=== PATIENT | female | born 1935 | race Caucasian/White ===

== ENCOUNTER 2017-11-16 15:01 | Emergency (ER) | payer MEDICARE, OTHER ==
--- NOTE | 2017-11-16 15:16 | EDM.PDOC ---
ED HPI GENERAL MEDICAL PROBLEM - General Chief Complaint: General Stated Complaint: FELL Time Seen by Provider: 11/16/17 15:01 Source of Information: Reports: Patient, EMS History Limitations: Reports: Other (H/O dementia) - History of Present Illness INITIAL COMMENTS - FREE TEXT/NARRATIVE: 82 y.o.w.f with h/o dementia came to the ed by EMS because she was found on the floor next to her bed and could not get up. However, Pt denied falling. She does not know why she was brought to the ED. No Pain, No N/.V/D no dizziness. BP 1164 RR 24 Pulse 76 Temp 36.7 Pulse ox 100% Onset Date: 11/16/17 Onset Time: 12:00 Duration: Hour(s): Location: Reports: Other (pt denied any complaisn and does not know why she is here. ) - Related Data Allergies Allergy/AdvReac Type Severity Reaction Status Date / Time codeine Allergy Other Verified 11/16/17 15:03 propoxyphene Allergy Other Verified 11/16/17 15:03 Home Meds: Home Meds amLODIPine [Norvasc] 10 mg PO DAILY #30 tablet 12/14/14 [Rx] Donepezil HCl [Aricept] 10 mg PO DAILY 11/16/17 [History] Furosemide [Lasix] 20 mg PO DAILY 11/16/17 [History] Hydrochlorothiazide/Lisinopril [Lisinopril-HCTZ 20-25 MG] 20 mg PO DAILY [History] Memantine HCl 10 mg PO BID 11/16/17 [History] Multivitamin [Multi-Day Vitamins] 1 tab PO DAILY 11/16/17 [History] Warfarin Sodium [Coumadin] 7.5 mg PO MOWEFR 11/16/17 [History] Warfarin [Coumadin] 5 mg PO SUTUTHSA 11/16/17 [History] Past Medical History Other Respiratory History: COPD DIAGNOSIS ON OLD CHEST X-RAY 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 Neuro History: MENINGITIS, FORGETFUL ED ROS GENERAL - Review of Systems Review Of Systems: Unable To Obtain Constitutional: Reports: No Symptoms HEENT: Reports: No Symptoms Respiratory: Reports: No Symptoms Cardiovascular: Reports: No Symptoms Endocrine: Reports: No Symptoms GI/Abdominal: Reports: No Symptoms : Reports: No Symptoms Musculoskeletal: Reports: No Symptoms Skin: Reports: No Symptoms Neurological: Reports: No Symptoms Psychiatric: Reports: No Symptoms Hematologic/Lymphatic: Reports: No Symptoms Immunologic: Reports: No Symptoms ED EXAM, GENERAL - Physical Exam Exam: See Below Exam Limited By: No Limitations General Appearance: Alert, WD/WN, No Apparent Distress Eye Exam: Bilateral Eye: Normal Inspection Ears: Normal External Exam Ear Exam: Bilateral Ear: Auricle Normal Nose: Normal Inspection Throat/Mouth: Normal Lips, Normal Voice, No Airway Compromise, Other (dry mucosal membrane) Head: Atraumatic, Normocephalic Neck: Normal Inspection, Supple, Non-Tender Respiratory/Chest: No Respiratory Distress, Lungs Clear, Normal Breath Sounds, No Accessory Muscle Use, Chest Non-Tender Cardiovascular: Normal Peripheral Pulses, Regular Rate, Rhythm, No Edema Peripheral Pulses: 1+: Brachial (L) GI/Abdominal: Normal Bowel Sounds, Soft, Non-Tender, No Abnormal Bruit (Female) Exam: Deferred Rectal (Female) Exam: Deferred Back Exam: Normal Inspection, Full Range of Motion Extremities: Normal Inspection, Normal Range of Motion, Non-Tender, No Pedal Edema Neurological: Alert, Oriented, CN II-XII Intact, Normal Cognition, Normal Gait Psychiatric: Normal Affect, Normal Mood Skin Exam: Warm, Dry, Intact, Normal Color, No Rash Lymphatic: No Adenopathy Course - Vital Signs Text/Narrative:: 82 y.o.w.f with h/o dementia came to the ed by EMS because she was found on the floor next to her bed and could not get up. However, Pt denied falling. She does not know why she was brought to the ED. No Pain, No N/.V/D no dizziness. BP 11/64 RR 24 Pulse 76 Temp 36.7 Pulse ox 100% PE: WNWD W F with dry mucosal membrane, ambulates fine Labs: CBC neg, INR 1.86 )=(on coumadine) NA/K nl BUN 10 Cr 1.6 GFR 36 Impression: Fall (?)Dehydration Tx: Water PO Reexam: doing well, ambulates fine Plan: D/C with instructions Last Recorded V/S: Last Vital Signs Temp 36.6 C 11/16/17 15:45 Pulse 60 11/16/17 15:20 Resp 20 11/16/17 16:45 BP 113/60 11/16/17 16:45 Pulse Ox 98 07/07/18 16:45 - Orders/Labs/Meds Orders: Active Orders 24 hr Category Date Time Status UA W/MICROSCOPIC [URIN] Stat Lab 11/16/17 15:38 Ordered Labs: Laboratory Tests 11/16/17 11/16/17 11/16/17 Range/Units 14:45 14:45 14:45 WBC 7.3 (4.5-12.0) X10-3/uL RBC 4.66 (3.23-5.20) x10(6)uL Hgb 14.2 (11.5-15.5) g/dL Hct 41.9 (30.0-51.3) % MCV 90.0 (80-96) fL MCH 30.4 (27.7-33.6) pg MCHC 33.8 (32.2-35.4) g/dL RDW 12.5 (11.5-15.5) % Plt Count 257 (125-369) X10(3)uL MPV 8.6 (7.4-10.4) fL Neut % (Auto) 61.1 (46-82) % Lymph % (Auto) 28.2 (13-37) % Shannon % (Auto) 7.7 (4-12) % Eos % (Auto) 2 (1.0-5.0) % Baso % (Auto) 1 (0-2) % Neut # (Auto) 4.4 (1.6-8.3) # Lymph # (Auto) 2.0 (0.6-5.0) # Shannon # (Auto) 0.6 (0.0-1.3) # Eos # (Auto) 0.2 (0.0-0.8) # Baso # (Auto) 0.1 (0.0-0.2) # PT 17.9 H (8.7-11.1) INR 1.86 H (0.89-1.13) Sodium 136 (135-145) mmol/L Potassium 4.2 (3.5-5.3) mmol/L Chloride 101 (100-110) mmol/L Carbon Dioxide 27 (21-32) mmol/L BUN 16 (7-18) mg/dL Creatinine 1.4 H (0.55-1.02) mg/dL Est Cr Clr Drug Dosing 25.19 mL/min Estimated GFR (MDRD) 36 L (>60) BUN/Creatinine Ratio 11.4 (9-20) Glucose 83 (80-116) mg/dL Calcium 8.9 (8.6-10.2) mg/dL Urine Color (YELLOW) Urine Appearance (CLEAR) Urine pH (5.0-6.5) Ur Specific [place] (1.010-1.025) Urine Protein (NEGATIVE) mg/dL Urine Glucose (UA) (NEGATIVE) mg/dL Urine Ketones (NEGATIVE) mg/dL Urine Occult Blood (NEGATIVE) Urine Nitrite (NEGATIVE) Urine Bilirubin (NEGATIVE) Urine Urobilinogen (NEGATIVE) mg/dL Ur Leukocyte Esterase (NEGATIVE) Urine RBC (0) Urine WBC (0) Ur Squamous Epith Cells (NS,R,O) Urine Bacteria (NS) Urine Mucus (NS) 11/16/17 Range/Units 15:38 WBC (4.5-12.0) X10-3/uL RBC (3.23-5.20) x10(6)uL Hgb (11.5-15.5) g/dL Hct (30.0-51.3) % MCV (80-96) fL MCH (27.7-33.6) pg MCHC (32.2-35.4) g/dL RDW (11.5-15.5) % Plt Count (125-369) X10(3)uL MPV (7.4-10.4) fL Neut % (Auto) (46-82) % Lymph % (Auto) (13-37) % [place] % (Auto) (4-12) % Eos % (Auto) (1.0-5.0) % Baso % (Auto) (0-2) % Neut # (Auto) (1.6-8.3) # Lymph # (Auto) (0.6-5.0) # Shannon # (Auto) (0.0-1.3) # Eos # (Auto) (0.0-0.8) # Baso # (Auto) (0.0-0.2) # PT (8.7-11.1) INR (0.89-1.13) Sodium (135-145) mmol/L Potassium (3.5-5.3) mmol/L Chloride (100-110) mmol/L Carbon Dioxide (21-32) mmol/L BUN (7-18) mg/dL Creatinine (0.55-1.02) mg/dL Est Cr Clr Drug Dosing mL/min Estimated GFR (MDRD) (>60) BUN/Creatinine Ratio (9-20) Glucose (80-116) mg/dL Calcium (8.6-10.2) mg/dL Urine Color Yellow (YELLOW) Urine Appearance Clear (CLEAR) Urine pH 8.0 H (5.0-6.5) Ur Specific [place] 1.010 (1.010-1.025) Urine Protein Negative (NEGATIVE) mg/dL Urine Glucose (UA) Normal (NEGATIVE) mg/dL Urine Ketones Negative (NEGATIVE) mg/dL Urine Occult Blood Negative (NEGATIVE) Urine Nitrite Negative (NEGATIVE) Urine Bilirubin Negative (NEGATIVE) Urine Urobilinogen Normal (NEGATIVE) mg/dL Ur Leukocyte Esterase Negative (NEGATIVE) Urine RBC 0-5 (0) Urine WBC 0-5 (0) Ur Squamous Epith Cells Few H (NS,R,O) Urine Bacteria Few H (NS) Urine Mucus Few H (NS) Departure - Departure Time of Disposition: 17:02 Disposition: Home, Self-Care 01 Condition: Good Clinical Impression: Dehydration - Discharge Information Instructions: Dehydration, Adult, [id number] Referrals: PCP,None [Primary Care Provider] - Forms: ED Department Discharge Additional Instructions: Please increase water intake, please f/u with your PMD, please come back if your symptoms get worse acutely - My Orders Last 24 Hours: My Active Orders 11/16/17 15:38 UA W/MICROSCOPIC [URIN] Stat - Assessment/Plan Last 24 Hours: My Active Orders 11/16/17 15:38 UA W/MICROSCOPIC [URIN] Stat
[2017-11-16 17:47] VITALS: BP 113/60
== END 2017-11-16 17:15 | disposition home or self-care (01) ==
LOC: FB.ED 15:01
DX: E86.0 Dehydration (principal); J44.9 Chronic obstructive pulmonary disease, unspecified; Z88.5 Allergy status to narcotic agent; Z88.8 Allergy status to other drugs, medicaments and biological substances; Z79.899 Other long term (current) drug therapy
CPT/HCPCS: 36415; 80048; 81001; 85025; 85610; 99283; 99285

== ENCOUNTER 2018-10-05 14:06 | Emergency (ER) | payer MEDICARE, OTHER ==
[2018-10-05] MEDS ORDERED: Ciprofloxacin 500 MG Tab PO ONE ×2 (14:07→15:16)
--- NOTE | 2018-10-05 14:20 | EDM.PDOC ---
ED HPI GENERAL MEDICAL PROBLEM - General Stated Complaint: MIGRAINE, TREMERS Time Seen by Provider: 10/05/18 14:06 Source of Information: Reports: Patient, EMS, Family History Limitations: Reports: Other (dementia) - History of Present Illness INITIAL COMMENTS - FREE TEXT/NARRATIVE: 83 y.o.w.f with a H/O Dementia, H/O DVT's PE's came to the ED by EMS due to H/A and not feeling well. Pt is a poor historian due to her underlying medical issues. As the patient arrived in the ed, she said her H/A has entirely subsided. She feels well now and want to go home. No family is present. No N/V/D , Pt was ambulating with help to the Bathroom, which is the baseline for her. 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 No other acute med issues. 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) Worsens with: Reports: Other Associated Symptoms: Reports: Confusion (H/O Dementia) Treatments WAX PATTERN REPAIRER: Reports: NSAIDS - Related Data Allergies Allergy/AdvReac Type Severity Reaction Status Date / Time codeine Allergy Other Verified 10/05/18 14:14 propoxyphene Allergy Other Verified 10/05/18 14:14 Home Meds: Home Meds amLODIPine [Norvasc] 10 mg PO DAILY #30 tablet 12/14/14 [Rx] Donepezil HCl [Aricept] 10 mg PO DAILY 11/16/17 [History] Furosemide [Lasix] 20 mg PO DAILY 11/16/17 [History] Memantine HCl 10 mg PO BID 11/16/17 [History] Multivitamin [Multi-Day Vitamins] 1 tab PO DAILY 11/16/17 [History] Warfarin Sodium [Coumadin] 7.5 mg PO MOWEFR 11/16/17 [History] Warfarin [Coumadin] 5 mg PO SUTUTHSA 11/16/17 [History] Lisinopril 20 mg PO DAILY 10/05/18 [History] Past Medical History Cardiovascular History: Reports: Hypertension Other Respiratory History: COPD DIAGNOSIS ON OLD CHEST X-RAY 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 Neuro History: MENINGITIS, FORGETFUL Psychiatric History: Reports: Dementia Social & Family History - Caffeine Use Caffeine Use: Reports: Coffee ED ROS GENERAL - Review of Systems Review Of Systems: Unable To Obtain (dementia) ED EXAM, GENERAL - Physical Exam Exam: See Below Exam Limited By: Other (dementia) General Appearance: Alert, WD/WN, Mild Distress Eye Exam: Bilateral Eye: Normal Inspection Ears: Normal External Exam Ear Exam: Bilateral Ear: Auricle Normal Nose: Normal Inspection, Normal Mucosa, No Blood Throat/Mouth: Normal Lips, Normal Voice, No Airway Compromise, Other (poor dentition, dry mucosal membrane) Head: Atraumatic, Normocephalic Neck: Normal Inspection, Supple, Non-Tender, Full Range of Motion Respiratory/Chest: No Respiratory Distress, Lungs Clear, Normal Breath Sounds Cardiovascular: Normal Peripheral Pulses, Regular Rate, Rhythm Peripheral Pulses: 1+: Femoral (L) GI/Abdominal: Normal Bowel Sounds, Soft, Non-Tender, No Organomegaly, No Mass, Pelvis Stable (Female) Exam: Deferred Rectal (Female) Exam: Deferred Back Exam: Normal Inspection, Full Range of Motion Extremities: Normal Inspection, Normal Range of Motion, Non-Tender, Pedal Edema (chronic left leg edema) Neurological: Alert, Oriented, CN II-XII Intact, Normal Gait (with help, baseline) Psychiatric: Normal Affect, Normal Mood Skin Exam: Warm, Dry, Intact, Pallor Lymphatic: No Adenopathy EKG INTERPRETATION EKG Date: 10/05/18 Time: 14:20 Rhythm: NSR Rate (Beats/Min): 67 [employer]: Normal P-Wave: Present QRS: Normal ST-T: Normal QT: Normal Comparison: No Change (from 12/08/2014) Course - Vital Signs Text/Narrative:: 83 y.o.w.f with a H/O Dementia, H/O DVT's PE's came to the ED by EMS due to H/A and not feeling well. Pt is a poor historian due to her underlying medical issues. As the patient arrived in the ed, she said her H/A has entirely subsided. She feels well now and want to go home. No family is present. No N/V/D , Pt was ambulating with help to the Bathroom, which is the baseline for her. 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 No other acute med issues. BP 135/91 RR 16 Pulse ox 96% on RA Pulse 64 Temp 36.4 PE: WNWD WF in NAD Imaging: Not indicated Labs: CBC nl BMP NL except BUN 20 Cr 1.7 GFR 29 UA pos for USG low and Leucocytesterase pos. Impression: UTI, Dehydration Tx: Cipro, po water Reexam: Improved Plan: D/C with instructions Last Recorded V/S: Last Vital Signs Temp 36.4 C 10/05/18 14:06 Pulse 66 10/05/18 14:06 Resp 18 10/05/18 14:06 BP 135/91 H 10/05/18 14:06 Pulse Ox 96 10/05/18 14:06 - Orders/Labs/Meds Orders: Active Orders 24 hr Category Date Time Status EKG Documentation Completion [RC] ASDIRECTED Care 10/05/18 14:24 Active CULTURE URINE [RM] Stat Lab 10/05/18 14:55 Received EKG 12 Lead [EK] Routine Ther 10/05/18 14:24 Ordered Labs: Laboratory Tests 10/05/18 10/05/18 10/05/18 Range/Units 14:25 14:25 14:25 WBC 8.4 (4.5-12.0) X10-3/uL RBC 4.94 (3.23-5.20) x10(6)uL Hgb 15.0 (11.5-15.5) g/dL Hct 44.2 (30.0-51.3) % MCV 89.5 (80-96) fL MCH 30.5 (27.7-33.6) pg MCHC 34.0 (32.2-35.4) g/dL RDW 12.4 (11.5-15.5) % Plt Count 258 (125-369) X10(3)uL MPV 8.4 (7.4-10.4) fL Neut % (Auto) 64.7 (46-82) % Lymph % (Auto) 27.2 (13-37) % Fisher % (Auto) 6.0 (4-12) % Eos % (Auto) 1 (1.0-5.0) % Baso % (Auto) 1 (0-2) % Neut # (Auto) 5.4 (1.6-8.3) # Lymph # (Auto) 2.3 (0.6-5.0) # Fisher # (Auto) 0.5 (0.0-1.3) # Eos # (Auto) 0.1 (0.0-0.8) # Baso # (Auto) 0.1 (0.0-0.2) # PT (8.7-11.1) INR (0.89-1.13) Sodium 136 (135-145) mmol/L Potassium 4.5 (3.5-5.3) mmol/L Chloride 100 (100-110) mmol/L Carbon Dioxide 29 (21-32) mmol/L BUN 20 H (7-18) mg/dL Creatinine 1.7 H (0.55-1.02) mg/dL Est Cr Clr Drug Dosing 20.38 mL/min Estimated GFR (MDRD) 29 L (>60) BUN/Creatinine Ratio 11.8 (9-20) Glucose 81 (80-116) mg/dL Lactic Acid 1.5 (0.4-2.2) mmol/L Calcium 9.3 (8.6-10.2) mg/dL Total Bilirubin (0.1-1.3) mg/dL Direct Bilirubin (0.10-0.20) mg/dL AST (5-25) IU/L ALT (12-36) U/L Alkaline Phosphatase (56-112) IU/L Troponin I (<0.017-0.056) ng/mL Total Protein (6.0-8.0) g/dL Albumin (3.2-4.6) g/dL Amylase (25-115) U/L Urine Color (YELLOW) Urine Appearance (CLEAR) Urine pH (5.0-6.5) Ur Specific [place] (1.010-1.025) Urine Protein (NEGATIVE) mg/dL Urine Glucose (UA) (NORMAL) mg/dL Urine Ketones (NEGATIVE) mg/dL Urine Occult Blood (NEGATIVE) Urine Nitrite (NEGATIVE) Urine Bilirubin (NEGATIVE) Urine Urobilinogen (NEGATIVE) mg/dL Ur Leukocyte Esterase (NEGATIVE) Urine RBC (0-5) Urine WBC (0-5) Ur Squamous Epith Cells (NS,R,O) Urine Bacteria (NS) 10/05/18 10/05/18 10/05/18 Range/Units 14:25 14:25 14:35 WBC (4.5-12.0) X10-3/uL RBC (3.23-5.20) x10(6)uL Hgb (11.5-15.5) g/dL Hct (30.0-51.3) % MCV (80-96) fL MCH (27.7-33.6) pg MCHC (32.2-35.4) g/dL RDW (11.5-15.5) % Plt Count (125-369) X10(3)uL MPV (7.4-10.4) fL Neut % (Auto) (46-82) % Lymph % (Auto) (13-37) % Fisher % (Auto) (4-12) % Eos % (Auto) (1.0-5.0) % Baso % (Auto) (0-2) % Neut # (Auto) (1.6-8.3) # Lymph # (Auto) (0.6-5.0) # Fisher # (Auto) (0.0-1.3) # Eos # (Auto) (0.0-0.8) # Baso # (Auto) (0.0-0.2) # PT 28.0 H (8.7-11.1) INR 2.92 H (0.89-1.13) Sodium (135-145) mmol/L Potassium (3.5-5.3) mmol/L Chloride (100-110) mmol/L Carbon Dioxide (21-32) mmol/L BUN (7-18) mg/dL Creatinine (0.55-1.02) mg/dL Est Cr Clr Drug Dosing mL/min Estimated GFR (MDRD) (>60) BUN/Creatinine Ratio (9-20) Glucose (80-116) mg/dL Lactic Acid (0.4-2.2) mmol/L Calcium (8.6-10.2) mg/dL Total Bilirubin 0.4 (0.1-1.3) mg/dL Direct Bilirubin 0.10 (0.10-0.20) mg/dL AST 26 H (5-25) IU/L ALT 25 (12-36) U/L Alkaline Phosphatase 97 (56-112) IU/L Troponin I < 0.017 L (<0.017-0.056) ng/mL Total Protein 6.2 (6.0-8.0) g/dL Albumin 3.1 L (3.2-4.6) g/dL Amylase 103 (25-115) U/L Urine Color (YELLOW) Urine Appearance (CLEAR) Urine pH (5.0-6.5) Ur Specific [place] (1.010-1.025) Urine Protein (NEGATIVE) mg/dL Urine Glucose (UA) (NORMAL) mg/dL Urine Ketones (NEGATIVE) mg/dL Urine Occult Blood (NEGATIVE) Urine Nitrite (NEGATIVE) Urine Bilirubin (NEGATIVE) Urine Urobilinogen (NEGATIVE) mg/dL Ur Leukocyte Esterase (NEGATIVE) Urine RBC (0-5) Urine WBC (0-5) Ur Squamous Epith Cells (NS,R,O) Urine Bacteria (NS) 10/05/18 Range/Units 14:55 WBC (4.5-12.0) X10-3/uL RBC (3.23-5.20) x10(6)uL Hgb (11.5-15.5) g/dL Hct (30.0-51.3) % MCV (80-96) fL MCH (27.7-33.6) pg MCHC (32.2-35.4) g/dL RDW (11.5-15.5) % Plt Count (125-369) X10(3)uL MPV (7.4-10.4) fL Neut % (Auto) (46-82) % Lymph % (Auto) (13-37) % Fisher % (Auto) (4-12) % Eos % (Auto) (1.0-5.0) % Baso % (Auto) (0-2) % Neut # (Auto) (1.6-8.3) # Lymph # (Auto) (0.6-5.0) # Fisher # (Auto) (0.0-1.3) # Eos # (Auto) (0.0-0.8) # Baso # (Auto) (0.0-0.2) # PT (8.7-11.1) INR (0.89-1.13) Sodium (135-145) mmol/L Potassium (3.5-5.3) mmol/L Chloride (100-110) mmol/L Carbon Dioxide (21-32) mmol/L BUN (7-18) mg/dL Creatinine (0.55-1.02) mg/dL Est Cr Clr Drug Dosing mL/min Estimated GFR (MDRD) (>60) BUN/Creatinine Ratio (9-20) Glucose (80-116) mg/dL Lactic Acid (0.4-2.2) mmol/L Calcium (8.6-10.2) mg/dL Total Bilirubin (0.1-1.3) mg/dL Direct Bilirubin (0.10-0.20) mg/dL AST (5-25) IU/L ALT (12-36) U/L Alkaline Phosphatase (56-112) IU/L Troponin I (<0.017-0.056) ng/mL Total Protein (6.0-8.0) g/dL Albumin (3.2-4.6) g/dL Amylase (25-115) U/L Urine Color Yellow (YELLOW) Urine Appearance Clear (CLEAR) Urine pH 7.0 H (5.0-6.5) Ur Specific [place] 1.005 L (1.010-1.025) Urine Protein Negative (NEGATIVE) mg/dL Urine Glucose (UA) Normal (NORMAL) mg/dL Urine Ketones Negative (NEGATIVE) mg/dL Urine Occult Blood Negative (NEGATIVE) Urine Nitrite Negative (NEGATIVE) Urine Bilirubin Negative (NEGATIVE) Urine Urobilinogen Normal (NEGATIVE) mg/dL Ur Leukocyte Esterase Moderate H (NEGATIVE) Urine RBC 0-5 (0-5) Urine WBC 0-5 (0-5) Ur Squamous Epith Cells Few H (NS,R,O) Urine Bacteria Few H (NS) Meds: Medications Discontinued Medications Generic Name Dose Route Start Last Admin Trade Name Freq PRN Reason Stop Dose Admin Ciprofloxacin 500 mg 10/05/18 15:16 10/05/18 15:30 Ciprofloxacin Hcl PO 10/05/18 15:17 500 mg ONETIME ONE Administration Departure - Departure Time of Disposition: 15:17 Disposition: Home, Self-Care 01 Condition: Good Clinical Impression: Dehydration UTI (urinary tract infection) Qualifiers: Urinary tract infection type: acute cystitis Hematuria presence: without hematuria Qualified Code(s): N30.00 - Acute cystitis without hematuria - Discharge Information Instructions: Urinary Tract Infection, Adult, [id number], Ciprofloxacin tablets Referrals: PCP,None [Primary Care Provider] - Forms: ED Department Discharge Additional Instructions: Please increase water intake. Please repeat the INR test in 3-4 days, please follow up with regular MD at clinic as needed or if not improving, come back if your symptoms get worse acutely. Cipro 500mg 1 tablet twice a day, start tomorrow. First dose was given in ER. - My Orders Last 24 Hours: My Active Orders 10/05/18 14:24 EKG Documentation Completion [RC] ASDIRECTED EKG 12 Lead [EK] Routine 10/05/18 14:55 CULTURE URINE [RM] Stat - Assessment/Plan Last 24 Hours: My Active Orders 10/05/18 14:24 EKG Documentation Completion [RC] ASDIRECTED EKG 12 Lead [EK] Routine 10/05/18 14:55 CULTURE URINE [RM] Stat
[2018-10-05 18:49] VITALS: BP 120/79
== END 2018-10-05 17:00 | disposition home or self-care (01) ==
LOC: FB.ED 14:06
DX: N30.00 Acute cystitis without hematuria (principal); E86.0 Dehydration; I10 Essential (primary) hypertension; F03.90 Unspecified dementia, unspecified severity, without behavioral disturbance, psychotic disturbance, mood disturbance, and anxiety; Z79.01 Long term (current) use of anticoagulants; Z79.899 Other long term (current) drug therapy; Z88.5 Allergy status to narcotic agent; Z88.8 Allergy status to other drugs, medicaments and biological substances; Z86.718 Personal history of other venous thrombosis and embolism
CPT/HCPCS: 36415; 80048; 80076; 81001; 82150; 83605; 84484; 85025; 85610; 87086; 93005; 99284; A9270

== ENCOUNTER 2018-11-15 10:10 | Emergency (ER) | payer MEDICARE, OTHER ==
--- NOTE | 2018-11-15 10:43 | EDM.PDOC ---
ED HPI GENERAL MEDICAL PROBLEM - General Stated Complaint: WEAK Time Seen by Provider: 11/15/18 10:37 Source of Information: Reports: Patient, EMS, Custodial Records History Limitations: Reports: Altered Mental Status (Patient is disoriented and cannot provide me with really any history) - History of Present Illness INITIAL COMMENTS - FREE TEXT/NARRATIVE: 83-year-old female who presents to the emergency department via ambulance from her assisted living facility after she was found in her room lying on her bed with decreased responsiveness this morning. Apparently the patient did not come down for breakfast and staff went to check on the patient and found her on her bed fully clothed (she does wear a diaper but the diaper was not soiled) and not responding to verbal stimuli or other stimuli in a normal way. EMS found the patient in a similar condition. She was breathing and did respond with grunts. She was noted to have a blood sugar 61 and was awake enough to take oral glucose and she received about a half a tube of oral glucose with a rise in her blood sugar to the 80s and she seemed to be somewhat more responsive after this. She would respond verbally at that time but seemed disoriented to place, time and situation. She seemed the same to me when I initially evaluated the patient and was awake and alert and verbally responsive but was disoriented as above. She tells me that everything is fine and she is not sure why she was brought here and she does not know where here is. She tells me she feels fine and she has no pain anywhere. She is in no respiratory distress and her eyes follow the examiner and she seemed to respond appropriately to my questions. Apparently the patient was normal last night per the assisted living staff. She was eating and drinking normally and ambulating normally. There were no reports of complaints of chest pain or cough or fever or trauma by the personnel at the assisted [facility] per the EMS who brought her. She denies any pain right now. She would rate her pain as a 0/10. There are no other associated signs or symptoms. There are no other modifying factors. 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 Medication(s) (Oral glucose) - Related Data Allergies Allergy/AdvReac Type Severity Reaction Status Date / Time codeine Allergy Other Verified 11/15/18 10:34 propoxyphene Allergy Other Verified 11/15/18 10:34 Home Meds: Home Meds amLODIPine [Norvasc] 10 mg PO DAILY #30 tablet 12/14/14 [Rx] Donepezil HCl [Aricept] 10 mg PO DAILY 11/16/17 [History] Furosemide [Lasix] 20 mg PO DAILY 11/16/17 [History] Memantine HCl 10 mg PO BID 11/16/17 [History] Multivitamin [Multi-Day Vitamins] 1 tab PO DAILY 11/16/17 [History] Warfarin Sodium [Coumadin] 7.5 mg PO MO 11/16/17 [History] Warfarin [Coumadin] 5 mg PO SUTUWETHFRSA 11/16/17 [History] Lisinopril 20 mg PO DAILY 10/05/18 [History] Cephalexin [Keflex] 500 mg PO TID 7 Days #21 capsule 11/15/18 [Rx] Past Medical History Cardiovascular History: Reports: Hypertension Respiratory History: Reports: PE 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: Neurological History: Reports: Migraines Other Neuro History: MENINGITIS, FORGETFUL Psychiatric History: Reports: Dementia Hematologic History: Reports: Anticoagulation Therapy - Infectious Disease History Infectious Disease History: Reports: Chicken Pox, Measles, Meningitis, Mumps, Pertussis (Whooping Cough), Scarlet Fever - Past Surgical History Female Surgical History: Reports: Hysterectomy Musculoskeletal Surgical History: Reports: ORIF (Wrist and ankle) Social & Family History - Family History Family Medical History: Noncontributory - Tobacco Use Smoking Status *Q: Never Smoker - Caffeine Use Caffeine Use: Reports: Coffee - Alcohol Use Alcohol Use History: No Alcohol Use Comment: She told me that she has rarely drink alcohol. - Living Situation & Occupation Living situation: Reports: Assisted Living ED ROS GENERAL - Review of Systems Review Of Systems: Unable To Obtain (The patient is disoriented to place, time and situation. Therefore, the review of systems is unreliable and unobtainable) ED EXAM, GENERAL - Physical Exam Exam: See Below Exam Limited By: No Limitations General Appearance: Alert, WD/WN, No Apparent Distress Eye Exam: Bilateral Eye: EOMI, Normal Inspection, PERRL Ears: Normal External Exam Ear Exam: Bilateral Ear: Auricle Normal Nose: Normal Inspection, Normal Mucosa, No Blood Throat/Mouth: Normal Inspection, Normal Oropharynx, Normal Voice, No Airway Compromise Head: Atraumatic, Normocephalic Neck: Normal Inspection, Supple, Non-Tender, Full Range of Motion Respiratory/Chest: No Respiratory Distress, Lungs Clear, Normal Breath Sounds, No Accessory Muscle Use, Chest Non-Tender Cardiovascular: Normal Peripheral Pulses, Regular Rate, Rhythm, No JVD Peripheral Pulses: 2+: Radial (L), Radial (R), Dorsalis Pedis (L), Dorsalis Pedis (R) GI/Abdominal: Normal Bowel Sounds, Soft, Non-Tender, No Mass Back Exam: Normal Inspection Extremities: Normal Inspection, Normal Range of Motion, Non-Tender, No Pedal Edema, Normal Capillary Refill Neurological: Alert, CN II-XII Intact, No Motor/Sensory Deficits, Disoriented Skin Exam: Intact, Normal Color, No Rash, Diaphoretic (Her hands and arms are somewhat clammy as is her back) EKG INTERPRETATION EKG Date: 11/15/18 Time: 10:22 Rhythm: NSR Rate (Beats/Min): 59 [place]: Normal P-Wave: Present QRS: LBBB (The QRS are fairly wide) ST-T: Other (4 with progression.) QT: Prolonged Comparison: NA - No Prior EKG Course - Vital Signs Last Recorded V/S: Last Vital Signs Temp 36.8 C 11/15/18 12:04 Pulse 57 L 11/15/18 12:04 Resp 18 11/15/18 12:04 BP 147/58 H 11/15/18 12:04 Pulse Ox 99 11/15/18 12:04 - Orders/Labs/Meds Orders: Active Orders 24 hr Category Date Time Status EKG Documentation Completion [RC] ASDIRECTED Care 11/15/18 10:54 Active Chest 1V Frontal [CR] Stat Exams 11/15/18 10:52 Taken Head wo Cont [CT] Stat Exams 11/15/18 11:17 Taken CULTURE URINE [RM] Stat Lab 11/15/18 11:30 Ordered Sodium Chloride 0.9% [Saline Flush] Med 11/15/18 10:52 Active 10 ml FLUSH ASDIRECTED PRN Peripheral IV Insertion Adult [OM.PC] Routine Oth 11/15/18 10:52 Ordered EKG 12 Lead [EK] Routine Ther 11/15/18 10:52 Ordered Medication Orders Sodium Chloride (Saline Flush) 10 ml FLUSH ASDIRECTED PRN PRN Reason: Keep Vein Open Labs: Laboratory Tests 11/15/18 11/15/18 11/15/18 Range/Units 10:25 10:25 10:25 WBC 6.8 (4.5-12.0) X10-3/uL RBC 5.06 (3.23-5.20) x10(6)uL Hgb 15.1 (11.5-15.5) g/dL Hct 45.2 (30.0-51.3) % MCV 89.4 (80-96) fL MCH 29.9 (27.7-33.6) pg MCHC 33.4 (32.2-35.4) g/dL RDW 12.4 (11.5-15.5) % Plt Count 210 (125-369) X10(3)uL MPV 8.7 (7.4-10.4) fL Neut % (Auto) 57.5 (46-82) % Lymph % (Auto) 32.8 (13-37) % [place] % (Auto) 6.7 (4-12) % Eos % (Auto) 3 (1.0-5.0) % Baso % (Auto) 1 (0-2) % Neut # (Auto) 3.9 (1.6-8.3) # Lymph # (Auto) 2.2 (0.6-5.0) # [place] # (Auto) 0.5 (0.0-1.3) # Eos # (Auto) 0.2 (0.0-0.8) # Baso # (Auto) 0.0 (0.0-0.2) # PT (8.7-11.1) INR (0.89-1.13) Sodium 140 (135-145) mmol/L Potassium 4.3 (3.5-5.3) mmol/L Chloride 107 D (100-110) mmol/L Carbon Dioxide 26 (21-32) mmol/L BUN 16 (7-18) mg/dL Creatinine 1.0 (0.55-1.02) mg/dL Est Cr Clr Drug Dosing TNP Estimated GFR (MDRD) 53 L (>60) BUN/Creatinine Ratio 16.0 (9-20) Glucose 82 (80-116) mg/dL Calcium 9.2 (8.6-10.2) mg/dL Magnesium 2.1 (1.8-2.5) mg/dL Total Bilirubin 0.4 (0.1-1.3) mg/dL AST 23 D (5-25) IU/L ALT 19 D (12-36) U/L Alkaline Phosphatase 98 (56-112) IU/L Troponin I < 0.017 L (<0.017-0.056) ng/mL C-Reactive Protein < 0.2 L (0.5-0.9) mg/dL Total Protein 6.1 (6.0-8.0) g/dL Albumin 2.9 L (3.2-4.6) g/dL Globulin 3.2 g/dL Albumin/Globulin Ratio 0.9 Urine Color (YELLOW) Urine Appearance (CLEAR) Urine pH (5.0-6.5) Ur Specific [place] (1.010-1.025) Urine Protein (NEGATIVE) mg/dL Urine Glucose (UA) (NORMAL) mg/dL Urine Ketones (NEGATIVE) mg/dL Urine Occult Blood (NEGATIVE) Urine Nitrite (NEGATIVE) Urine Bilirubin (NEGATIVE) Urine Urobilinogen (NEGATIVE) mg/dL Ur Leukocyte Esterase (NEGATIVE) Urine RBC (0-5) Urine WBC (0-5) Ur Squamous Epith Cells (NS,R,O) Urine Bacteria (NS) 11/15/18 11/15/18 Range/Units 10:25 11:30 WBC (4.5-12.0) X10-3/uL RBC (3.23-5.20) x10(6)uL Hgb (11.5-15.5) g/dL Hct (30.0-51.3) % MCV (80-96) fL MCH (27.7-33.6) pg MCHC (32.2-35.4) g/dL RDW (11.5-15.5) % Plt Count (125-369) X10(3)uL MPV (7.4-10.4) fL Neut % (Auto) (46-82) % Lymph % (Auto) (13-37) % [place] % (Auto) (4-12) % Eos % (Auto) (1.0-5.0) % Baso % (Auto) (0-2) % Neut # (Auto) (1.6-8.3) # Lymph # (Auto) (0.6-5.0) # [place] # (Auto) (0.0-1.3) # Eos # (Auto) (0.0-0.8) # Baso # (Auto) (0.0-0.2) # PT 21.6 H (8.7-11.1) INR 2.25 H (0.89-1.13) Sodium (135-145) mmol/L Potassium (3.5-5.3) mmol/L Chloride (100-110) mmol/L Carbon Dioxide (21-32) mmol/L BUN (7-18) mg/dL Creatinine (0.55-1.02) mg/dL Est Cr Clr Drug Dosing Estimated GFR (MDRD) (>60) BUN/Creatinine Ratio (9-20) Glucose (80-116) mg/dL Calcium (8.6-10.2) mg/dL Magnesium (1.8-2.5) mg/dL Total Bilirubin (0.1-1.3) mg/dL AST (5-25) IU/L ALT (12-36) U/L Alkaline Phosphatase (56-112) IU/L Troponin I (<0.017-0.056) ng/mL C-Reactive Protein (0.5-0.9) mg/dL Total Protein (6.0-8.0) g/dL Albumin (3.2-4.6) g/dL Globulin g/dL Albumin/Globulin Ratio Urine Color Yellow (YELLOW) Urine Appearance Clear (CLEAR) Urine pH 8.0 H (5.0-6.5) Ur Specific [place] 1.010 (1.010-1.025) Urine Protein Negative (NEGATIVE) mg/dL Urine Glucose (UA) Normal (NORMAL) mg/dL Urine Ketones Negative (NEGATIVE) mg/dL Urine Occult Blood Negative (NEGATIVE) Urine Nitrite Negative (NEGATIVE) Urine Bilirubin Negative (NEGATIVE) Urine Urobilinogen Normal (NEGATIVE) mg/dL Ur Leukocyte Esterase Small H (NEGATIVE) Urine RBC 0-5 (0-5) Urine WBC 5-10 H (0-5) Ur Squamous Epith Cells Few H (NS,R,O) Urine Bacteria Few H (NS) Meds: Medications Generic Name Dose Route Start Last Admin Trade Name Freq PRN Reason Stop Dose Admin Sodium Chloride 10 ml 11/15/18 10:52 Saline Flush FLUSH ASDIRECTED PRN Keep Vein Open Discontinued Medications Generic Name Dose Route Start Last Admin Trade Name Freq PRN Reason Stop Dose Admin Cephalexin 1,000 mg 11/15/18 12:46 11/15/18 12:50 Keflex PO 11/15/18 12:47 1,000 mg ONETIME ONE Administration Ceftriaxone Sodium 1 gm/ 50 mls @ 200 mls/hr 11/15/18 12:21 Sodium Chloride IV 11/15/18 12:35 ONETIME ONE Sodium Chloride Confirm 11/15/18 12:48 Normal Saline Administered 11/15/18 12:49 Dose 50 mls @ as directed .ROUTE .STK-MED ONE - Radiology Interpretation Free Text/Narrative:: Portable chest x-ray shows no acute disease. CT scan of the head shows no acute intracranial abnormality per the radiologist. - Re-Assessments/Exams Free Text/Narrative Re-Assessment/Exam: 11/15/18 12:25: Patient is awake and alert. Her blood tests are reassuringly normal. Her INR is therapeutic. Her urinalysis shows some evidence of infection. Her chest x-ray was normal. The CT scan of her head showed no acute abnormality. She has remained vitally stable. She has ambulated well with the nurse with no problems. She has also [place] with no problems. We will feed her lunch. I will place the patient on Keflex for her suspected UTI. I am unsure why she had the episode of decreased responsiveness, however, at this point she appears to be stable for discharge back to her assisted living. 11/15/18 13:25: Patient is eaten her lunch was no problem. She is awake, alert and appropriately responsive. She is still somewhat confused but according to the patient's guardian this is her baseline. We will plan on discharging the patient back to the assisted living and I will place her on Keflex 500 mg 3 times a day 7 days to treat suspected urinary tract infection. Departure - Departure Time of Disposition: 13:30 Disposition: Home, Self-Care 01 Condition: Fair (Stable) Clinical Impression: Transient alteration of awareness UTI (urinary tract infection) Qualifiers: Urinary tract infection type: site unspecified Hematuria presence: without hematuria Qualified Code(s): N39.0 - Urinary tract infection, site not specified - Discharge Information Prescriptions: Cephalexin [Keflex] 500 mg PO TID 7 Days #21 capsule Instructions: Urinary Tract Infection, Adult, [id number] Referrals: PCP,Unknown [Primary Care Provider] - Additional Instructions: Your blood tests were reassuringly normal. Your INR was in therapeutic range and was 2.25. Your urine test showed some evidence of infection and I have placed you on an antibiotic to treat this infection (Keflex 500 mg). You will need to have your INR rechecked on Saturday or Saturday of this coming week. You need to increase your fluid intake. Follow-up with your primary doctor this coming week. Back to the emergency department for high fever, unrelenting vomiting or any other concerning sign or symptom. - My Orders Last 24 Hours: My Active Orders 11/15/18 10:52 Chest 1V Frontal [CR] Stat Sodium Chloride 0.9% [Saline Flush] 10 ml FLUSH ASDIRECTED PRN Peripheral IV Insertion Adult [OM.PC] Routine EKG 12 Lead [EK] Routine 11/15/18 10:54 EKG Documentation Completion [RC] ASDIRECTED 11/15/18 11:17 Head wo Cont [CT] Stat 11/15/18 11:30 CULTURE URINE [RM] Stat - Assessment/Plan Last 24 Hours: My Active Orders 11/15/18 10:52 Chest 1V Frontal [CR] Stat Sodium Chloride 0.9% [Saline Flush] 10 ml FLUSH ASDIRECTED PRN Peripheral IV Insertion Adult [OM.PC] Routine EKG 12 Lead [EK] Routine 11/15/18 10:54 EKG Documentation Completion [RC] ASDIRECTED 11/15/18 11:17 Head wo Cont [CT] Stat 11/15/18 11:30 CULTURE URINE [RM] Stat
[2018-11-15] MEDS ORDERED: Sodium Chloride 0.9% 10 ML Syringe FLUSH PRN (10:52)
[2018-11-15] MEDS ORDERED: cefTRIAXone 1 GM in Sodium Chloride 0.9% 50 ML IV ONE (12:21)
[2018-11-15] MEDS ORDERED: Cephalexin 500 MG Cap PO ONE (12:46)
[2018-11-15] MEDS ORDERED: Sodium Chloride 0.9% 50 ML ONE (12:48)
[2018-11-15 15:49] VITALS: BP 133/74; PULSE 59
--- NOTE | 2018-11-17 13:14 | CR ---
INDICATION: Weakness. CHEST: An AP portable upright view of the chest 11/15/18 was compared with and 11/04/08. The heart did not appear enlarged. The aorta is somewhat tortuous with calcification in the arch. A definite active infiltrate or effusion was not identified. Mild dextroconvex scoliosis is noted at the upper middle thoracic spine. IMPRESSION: 1. No acute process. 2. ASD aorta. 3. Dextroconvex scoliosis of mild degree upper middle thoracic spine. MTDD
== END 2018-11-15 15:40 | disposition home or self-care (01) ==
LOC: FB.ED 10:10
DX: N39.0 Urinary tract infection, site not specified (principal); R41.82 Altered mental status, unspecified; I10 Essential (primary) hypertension; Z79.899 Other long term (current) drug therapy; Z88.5 Allergy status to narcotic agent; Z88.8 Allergy status to other drugs, medicaments and biological substances; Z79.01 Long term (current) use of anticoagulants
CPT/HCPCS: 36415; 70450; 71045; 80053; 81001; 83735; 84484; 85025; 85610; 86140; 87086; 93005; 99285; A9270; 93010; 99284

== ENCOUNTER 2018-12-02 15:17 | Emergency (ER) | payer MEDICARE, OTHER ==
--- NOTE | 2018-12-02 15:35 | EDM.PDOC ---
ED HPI GENERAL MEDICAL PROBLEM - General Chief Complaint: Neurological Problem Stated Complaint: SEIZURE Time Seen by Provider: 12/02/18 15:20 Source of Information: Reports: EMS, EMS Notes Reviewed, Old Records - History of Present Illness INITIAL COMMENTS - FREE TEXT/NARRATIVE: Sally comes into [facility] ED by EMS following multiple brief pseudoseizure episodes beginning about an hour before arrival. She was recumbent with initial episode, with dysynchronous movements of upper and lower extremities, no posturing of the neck or back, and no excessive secretions of the mouth or labored breathing. She was responding to staff during these episodes which lasted 15-20 sec each, including 4 episodes witnessed by EMS enroute. There is a PMH of dementia, but no hx of seizure disorder. On November 15, a noncontrast Head CE wo contrast noted degenerative changes. - Related Data Allergies Allergy/AdvReac Type Severity Reaction Status Date / Time codeine Allergy Other Verified 11/15/18 10:34 propoxyphene Allergy Other Verified 11/15/18 10:34 Home Meds: Home Meds amLODIPine [Norvasc] 10 mg PO DAILY #30 tablet 12/14/14 [Rx] Donepezil HCl [Aricept] 10 mg PO DAILY 11/16/17 [History] Furosemide [Lasix] 20 mg PO DAILY 11/16/17 [History] Memantine HCl 10 mg PO BID 11/16/17 [History] Multivitamin [Multi-Day Vitamins] 1 tab PO DAILY 11/16/17 [History] Warfarin Sodium [Coumadin] 7.5 mg PO MO 11/16/17 [History] Warfarin [Coumadin] 5 mg PO SUTUWETHFRSA 11/16/17 [History] Lisinopril 20 mg PO DAILY 10/05/18 [History] Cephalexin [Keflex] 500 mg PO TID 7 Days #21 capsule 11/15/18 [Rx] Past Medical History HEENT History: Reports: None Cardiovascular History: Reports: Hypertension Respiratory History: Reports: PE Other Respiratory History: COPD DIAGNOSIS ON OLD CHEST X-RAY 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: Neurological History: Reports: Migraines Other Neuro History: MENINGITIS, FORGETFUL Psychiatric History: Reports: Dementia Hematologic History: Reports: Anticoagulation Therapy - Infectious Disease History Infectious Disease History: Reports: Chicken Pox, Measles, Meningitis, Mumps, Pertussis (Whooping Cough), Scarlet Fever - Past Surgical History Female Surgical History: Reports: Hysterectomy Musculoskeletal Surgical History: Reports: ORIF (Wrist and ankle) Social & Family History - Family History Family Medical History: Noncontributory - Caffeine Use Caffeine Use: Reports: Coffee - Living Situation & Occupation Living situation: Reports: Assisted Living ED ROS GENERAL - Review of Systems Review Of Systems: Unable To Obtain - Physical Exam Exam: See Below Exam Limited By: Other (poor historian, no post ictal phase observed) General Appearance: Alert, WD/WN, No Apparent Distress Eye Exam: Bilateral Eye: EOMI, Normal Inspection, PERRL Ears: Normal External Exam Nose: Normal Inspection Throat/Mouth: Normal Lips, Normal Oropharynx, Normal Voice, No Airway Compromise Head Exam: Normocephalic Neck: Normal Inspection, Supple, Non-Tender, Full Range of Motion Respiratory/Chest: Lungs Clear, Normal Breath Sounds, Chest Non-Tender Cardiovascular: Normal Peripheral Pulses, Regular Rate, Rhythm, No Edema, No Murmur GI/Abdominal: Normal Bowel Sounds, Soft, Non-Tender, No Organomegaly, No Distention, No Mass (Female) Exam: Deferred Rectal (Female) Exam: Deferred Neuro Exam (Abbreviated): Alert, CN II-XII Intact, No Motor/Sensory Deficits, Inattentive, Confused, Memory Loss Remote Events, Memory Loss Recent Events Back Exam: Normal Inspection, Full Range of Motion Extremities: Normal Inspection, Normal Range of Motion Psychiatric: Flat Affect Skin Exam: Warm, Dry, Intact, Normal Color, No Rash Course - Vital Signs Text/Narrative:: Following assessment, Sally was observed over the next 2 hours, and no further pseudoseizure activity was observed. Her telemetry remained in NSR, and VSS. Screening labs including CBC and CMP were satisfactory. The UA was satisfactory. She will be released to family. Last Recorded V/S: Last Vital Signs Temp 36.7 C 12/02/18 15:17 Pulse 67 12/02/18 15:17 Resp 20 12/02/18 15:17 BP 158/83 H 12/02/18 15:17 Pulse Ox 99 12/02/18 15:17 - Orders/Labs/Meds Labs: Laboratory Tests 12/02/18 12/02/18 12/02/18 Range/Units 15:34 15:37 15:37 WBC 9.2 (4.5-12.0) X10-3/uL RBC 4.94 (3.23-5.20) x10(6)uL Hgb 15.1 (11.5-15.5) g/dL Hct 44.3 (30.0-51.3) % MCV 89.8 (80-96) fL MCH 30.6 (27.7-33.6) pg MCHC 34.1 (32.2-35.4) g/dL RDW 12.4 (11.5-15.5) % Plt Count 257 (125-369) X10(3)uL MPV 8.2 (7.4-10.4) fL Neut % (Auto) 59.5 (46-82) % Lymph % (Auto) 30.6 (13-37) % [place] % (Auto) 6.9 (4-12) % Eos % (Auto) 2 (1.0-5.0) % Baso % (Auto) 1 (0-2) % Neut # (Auto) 5.5 (1.6-8.3) # Lymph # (Auto) 2.8 (0.6-5.0) # [place] # (Auto) 0.6 (0.0-1.3) # Eos # (Auto) 0.2 (0.0-0.8) # Baso # (Auto) 0.1 (0.0-0.2) # PT (8.7-11.1) INR (0.89-1.13) Sodium 130 L D (135-145) mmol/L Potassium 3.9 (3.5-5.3) mmol/L Chloride 97 L D (100-110) mmol/L Carbon Dioxide 27 (21-32) mmol/L BUN 18 (7-18) mg/dL Creatinine 1.3 H (0.55-1.02) mg/dL Est Cr Clr Drug Dosing TNP Estimated GFR (MDRD) 39 L (>60) BUN/Creatinine Ratio 13.8 (9-20) Glucose 88 (80-116) mg/dL Calcium 9.1 (8.6-10.2) mg/dL Total Bilirubin 0.3 (0.1-1.3) mg/dL AST 28 H D (5-25) IU/L ALT 25 D (12-36) U/L Alkaline Phosphatase 114 H (56-112) IU/L Total Protein 6.4 (6.0-8.0) g/dL Albumin 3.1 L (3.2-4.6) g/dL Globulin 3.3 g/dL Albumin/Globulin Ratio 0.9 Urine Color Yellow (YELLOW) Urine Appearance Clear (CLEAR) Urine pH 6.5 (5.0-6.5) Ur Specific [place] 1.010 (1.010-1.025) Urine Protein Negative (NEGATIVE) mg/dL Urine Glucose (UA) Normal (NORMAL) mg/dL Urine Ketones Negative (NEGATIVE) mg/dL Urine Occult Blood Negative (NEGATIVE) Urine Nitrite Negative (NEGATIVE) Urine Bilirubin Negative (NEGATIVE) Urine Urobilinogen Normal (NEGATIVE) mg/dL Ur Leukocyte Esterase Negative (NEGATIVE) Urine RBC 0-5 (0-5) Urine WBC 0-5 (0-5) Ur Squamous Epith Cells Few H (NS,R,O) Urine Bacteria Many H (NS) 12/02/18 Range/Units 15:37 WBC (4.5-12.0) X10-3/uL RBC (3.23-5.20) x10(6)uL Hgb (11.5-15.5) g/dL Hct (30.0-51.3) % MCV (80-96) fL MCH (27.7-33.6) pg MCHC (32.2-35.4) g/dL RDW (11.5-15.5) % Plt Count (125-369) X10(3)uL MPV (7.4-10.4) fL Neut % (Auto) (46-82) % Lymph % (Auto) (13-37) % [place] % (Auto) (4-12) % Eos % (Auto) (1.0-5.0) % Baso % (Auto) (0-2) % Neut # (Auto) (1.6-8.3) # Lymph # (Auto) (0.6-5.0) # [place] # (Auto) (0.0-1.3) # Eos # (Auto) (0.0-0.8) # Baso # (Auto) (0.0-0.2) # PT 25.5 H (8.7-11.1) INR 2.66 H (0.89-1.13) Sodium (135-145) mmol/L Potassium (3.5-5.3) mmol/L Chloride (100-110) mmol/L Carbon Dioxide (21-32) mmol/L BUN (7-18) mg/dL Creatinine (0.55-1.02) mg/dL Est Cr Clr Drug Dosing Estimated GFR (MDRD) (>60) BUN/Creatinine Ratio (9-20) Glucose (80-116) mg/dL Calcium (8.6-10.2) mg/dL Total Bilirubin (0.1-1.3) mg/dL AST (5-25) IU/L ALT (12-36) U/L Alkaline Phosphatase (56-112) IU/L Total Protein (6.0-8.0) g/dL Albumin (3.2-4.6) g/dL Globulin g/dL Albumin/Globulin Ratio Urine Color (YELLOW) Urine Appearance (CLEAR) Urine pH (5.0-6.5) Ur Specific [place] (1.010-1.025) Urine Protein (NEGATIVE) mg/dL Urine Glucose (UA) (NORMAL) mg/dL Urine Ketones (NEGATIVE) mg/dL Urine Occult Blood (NEGATIVE) Urine Nitrite (NEGATIVE) Urine Bilirubin (NEGATIVE) Urine Urobilinogen (NEGATIVE) mg/dL Ur Leukocyte Esterase (NEGATIVE) Urine RBC (0-5) Urine WBC (0-5) Ur Squamous Epith Cells (NS,R,O) Urine Bacteria (NS) Departure - Departure Time of Disposition: 17:15 Disposition: Home, Self-Care 01 Condition: Good Clinical Impression: Pseudoseizures - Discharge Information *PRESCRIPTION DRUG MONITORING PROGRAM REVIEWED*: Not Applicable *COPY OF PRESCRIPTION DRUG MONITORING REPORT IN PATIENT REMIGIO: Not Applicable Instructions: Non-Epileptic Seizures, Adult Referrals: PCP,Unknown [Ordering Only Provider] - Forms: ED Department Discharge Additional Instructions: follow up with your primary care as needed - Problem List & Annotations (1) Pseudoseizures SNOMED Code(s): 193549500 Code(s): F44.5 - CONVERSION DISORDER WITH SEIZURES OR CONVULSIONS Status: Acute Current Visit: Yes Annotation/Comment:: Probable pseudoseizures NOS. Screening tests were baseline. No new meds dispensed. - Problem List Review Problem List Initiated/Reviewed/Updated: Yes - Assessment/Plan Plan: Follow up with PCP.
[2018-12-02 20:43] VITALS: BP 132/55; PULSE 64
== END 2018-12-02 18:49 | disposition home or self-care (01) ==
LOC: FB.ED 15:17
DX: F44.5 Conversion disorder with seizures or convulsions (principal); I10 Essential (primary) hypertension; J44.9 Chronic obstructive pulmonary disease, unspecified; F03.90 Unspecified dementia, unspecified severity, without behavioral disturbance, psychotic disturbance, mood disturbance, and anxiety; Z88.5 Allergy status to narcotic agent; Z88.6 Allergy status to analgesic agent; Z79.01 Long term (current) use of anticoagulants; Z79.899 Other long term (current) drug therapy
CPT/HCPCS: 36415; 80053; 81001; 85025; 85610; 87086; 87088; 87186; 99284; 99285

== ENCOUNTER 2019-03-28 15:21 | Emergency (ER) | payer MEDICARE, OTHER ==
--- NOTE | 2019-03-28 15:44 | EDM.PDOC ---
ED HPI GENERAL MEDICAL PROBLEM - General Chief Complaint: General Stated Complaint: lethargy Time Seen by Provider: 03/28/19 15:37 Source of Information: Reports: Patient History Limitations: Reports: No Limitations - History of Present Illness INITIAL COMMENTS - FREE TEXT/NARRATIVE: Patient resides at assisted living. Was found by staff laying in bed at 1345, very lethargic. EMS noted a blood sugar of 69, gave oral glucose. Patient's symptoms improved. She is not diabetic. She states she ate normally today, but history is unreliable as patient has a h/o dementia. Denies headache, focal weakness, cough, chest pain, shortness of breath or fevers. She has no complaints at this time and does not know why she is in the ED. Onset: Today Onset Date: 03/28/19 Onset Time: 13:45 - Related Data Allergies Allergy/AdvReac Type Severity Reaction Status Date / Time codeine Allergy Other Verified 11/15/18 10:34 propoxyphene Allergy Other Verified 11/15/18 10:34 Home Meds: Home Meds amLODIPine [Norvasc] 10 mg PO DAILY #30 tablet 12/14/14 [Rx] Donepezil HCl [Aricept] 10 mg PO DAILY 11/16/17 [History] Furosemide [Lasix] 20 mg PO DAILY 11/16/17 [History] Memantine HCl 10 mg PO BID 11/16/17 [History] Multivitamin [Multi-Day Vitamins] 1 tab PO DAILY 11/16/17 [History] Warfarin Sodium [Coumadin] 7.5 mg PO MO 11/16/17 [History] Warfarin [Coumadin] 5 mg PO [id number] 11/16/17 [History] Lisinopril 20 mg PO DAILY 10/05/18 [History] Cefuroxime [Ceftin] 250 mg PO BID #20 tab 03/28/19 [Rx] Past Medical History HEENT History: Reports: None Cardiovascular History: Reports: Hypertension Respiratory History: Reports: PE Other Respiratory History: COPD DIAGNOSIS ON OLD CHEST X-RAY 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: Neurological History: Reports: Migraines Other Neuro History: MENINGITIS, FORGETFUL Psychiatric History: Reports: Dementia Hematologic History: Reports: Anticoagulation Therapy - Infectious Disease History Infectious Disease History: Reports: Chicken Pox, Measles, Meningitis, Mumps, Pertussis (Whooping Cough), Scarlet Fever - Past Surgical History Female Surgical History: Reports: Hysterectomy Musculoskeletal Surgical History: Reports: ORIF (Wrist and ankle) Social & Family History - Family History Family Medical History: Noncontributory - Caffeine Use Caffeine Use: Reports: Coffee - Living Situation & Occupation Living situation: Reports: Assisted Living ED ROS GENERAL - Review of Systems Review Of Systems: Comprehensive ROS is negative, except as noted in HPI. ED EXAM, GENERAL - Physical Exam Exam: See Below Exam Limited By: No Limitations General Appearance: Alert, WD/WN, No Apparent Distress Eye Exam: Bilateral Eye: EOMI, PERRL Ears: Normal External Exam Nose: Normal Inspection, Normal Mucosa Throat/Mouth: Normal Oropharynx, No Airway Compromise Head: Atraumatic, Normocephalic Neck: Supple, Full Range of Motion Respiratory/Chest: No Respiratory Distress, Lungs Clear, Normal Breath Sounds Cardiovascular: Regular Rate, Rhythm, No Murmur GI/Abdominal: Soft, Non-Tender, No Distention Back Exam: Full Range of Motion Extremities: Normal Range of Motion Neurological: Alert, Normal Cognition, No Motor/Sensory Deficits Skin Exam: Warm, Dry, Intact, Normal Color EKG INTERPRETATION EKG Date: 03/28/19 Time: 16:11 Rhythm: NSR Rate (Beats/Min): 65 [place]: Normal P-Wave: Present QRS: LBBB ST-T: Normal QT: Normal Comparison: No Change (11/15/18) Course - Vital Signs Last Recorded V/S: Last Vital Signs Temp 36.8 C 03/28/19 15:25 Pulse 64 03/28/19 15:25 Resp 17 03/28/19 15:25 BP 116/62 03/28/19 15:25 Pulse Ox 97 03/28/19 15:25 - Orders/Labs/Meds Orders: Active Orders 24 hr Category Date Time Status EKG Documentation Completion [RC] ASDIRECTED Care 03/28/19 15:35 Active Head wo Cont [CT] Stat Exams 03/28/19 15:38 Ordered CBC WITH AUTO DIFF [HEME] Stat Lab 03/28/19 16:05 Results CULTURE BLOOD [BC] Urgent Lab 03/28/19 16:05 Received CULTURE BLOOD [BC] Urgent Lab 03/28/19 16:15 Received CULTURE URINE [RM] Stat Lab 03/28/19 17:16 Ordered Blood Culture x2 Reflex Set [OM.PC] Urgent Oth 03/28/19 15:35 Ordered EKG 12 Lead [EK] Stat Ther 03/28/19 15:34 Ordered Labs: Laboratory Tests 03/28/19 03/28/19 03/28/19 Range/Units 15:50 16:05 16:05 WBC 8.2 (4.5-12.0) X10-3/uL RBC 4.89 (3.23-5.20) x10(6)uL Hgb 14.3 (11.5-15.5) g/dL Hct 43.3 (30.0-51.3) % MCV 88.5 (80-96) fL MCH 29.4 (27.7-33.6) pg MCHC 33.2 (32.2-35.4) g/dL RDW 12.8 (11.5-15.5) % Plt Count 283 (125-369) X10(3)uL MPV 9.5 (7.4-10.4) fL Add Manual Diff Yes PT 22.9 H (8.7-11.1) INR 2.38 H (0.89-1.13) APTT 32.7 (24.4-33.2) SECONDS Sodium (135-145) mmol/L Potassium (3.5-5.3) mmol/L Chloride (100-110) mmol/L Carbon Dioxide (21-32) mmol/L BUN (7-18) mg/dL Creatinine (0.55-1.02) mg/dL Est Cr Clr Drug Dosing Estimated GFR (MDRD) (>60) BUN/Creatinine Ratio (9-20) Glucose (80-116) mg/dL Lactic Acid (0.4-2.2) mmol/L Calcium (8.6-10.2) mg/dL Total Bilirubin (0.1-1.3) mg/dL AST (5-25) IU/L ALT (12-36) U/L Alkaline Phosphatase (56-112) IU/L Troponin I (<0.017-0.056) ng/mL Total Protein (6.0-8.0) g/dL Albumin (3.2-4.6) g/dL Globulin g/dL Albumin/Globulin Ratio Urine Color Yellow (YELLOW) Urine Appearance Slightly cloudy (CLEAR) Urine pH 5.0 (5.0-6.5) Ur Specific [place] 1.005 L (1.010-1.025) Urine Protein Negative (NEGATIVE) mg/dL Urine Glucose (UA) Normal (NORMAL) mg/dL Urine Ketones Negative (NEGATIVE) mg/dL Urine Occult Blood Large H (NEGATIVE) Urine Nitrite Negative (NEGATIVE) Urine Bilirubin Negative (NEGATIVE) Urine Urobilinogen Normal (NEGATIVE) mg/dL Ur Leukocyte Esterase Large H (NEGATIVE) Urine RBC 5-10 H (0-5) Urine WBC 10-20 H (0-5) Ur Squamous Epith Cells Moderate H (NS,R,O) Urine Bacteria Moderate H (NS) 03/28/19 03/28/19 03/28/19 Range/Units 16:15 16:15 16:15 WBC (4.5-12.0) X10-3/uL RBC (3.23-5.20) x10(6)uL Hgb (11.5-15.5) g/dL Hct (30.0-51.3) % MCV (80-96) fL MCH (27.7-33.6) pg MCHC (32.2-35.4) g/dL RDW (11.5-15.5) % Plt Count (125-369) X10(3)uL MPV (7.4-10.4) fL Add Manual Diff PT (8.7-11.1) INR (0.89-1.13) APTT (24.4-33.2) SECONDS Sodium 138 (135-145) mmol/L Potassium 4.2 (3.5-5.3) mmol/L Chloride 104 D (100-110) mmol/L Carbon Dioxide 27 (21-32) mmol/L BUN 13 (7-18) mg/dL Creatinine 1.0 (0.55-1.02) mg/dL Est Cr Clr Drug Dosing TNP Estimated GFR (MDRD) 53 L (>60) BUN/Creatinine Ratio 13.0 (9-20) Glucose 103 (80-116) mg/dL Lactic Acid 1.0 (0.4-2.2) mmol/L Calcium 9.5 (8.6-10.2) mg/dL Total Bilirubin 0.4 (0.1-1.3) mg/dL AST 20 D (5-25) IU/L ALT 15 D (12-36) U/L Alkaline Phosphatase 93 (56-112) IU/L Troponin I < 0.017 L (<0.017-0.056) ng/mL Total Protein 6.2 (6.0-8.0) g/dL Albumin 3.0 L (3.2-4.6) g/dL Globulin 3.2 g/dL Albumin/Globulin Ratio 0.9 Urine Color (YELLOW) Urine Appearance (CLEAR) Urine pH (5.0-6.5) Ur Specific [place] (1.010-1.025) Urine Protein (NEGATIVE) mg/dL Urine Glucose (UA) (NORMAL) mg/dL Urine Ketones (NEGATIVE) mg/dL Urine Occult Blood (NEGATIVE) Urine Nitrite (NEGATIVE) Urine Bilirubin (NEGATIVE) Urine Urobilinogen (NEGATIVE) mg/dL Ur Leukocyte Esterase (NEGATIVE) Urine RBC (0-5) Urine WBC (0-5) Ur Squamous Epith Cells (NS,R,O) Urine Bacteria (NS) Meds: Medications Discontinued Medications Generic Name Dose Route Start Last Admin Trade Name Freq PRN Reason Stop Dose Admin Cefuroxime Axetil 500 mg 03/28/19 17:21 Ceftin PO 03/28/19 17:22 ONETIME ONE - Radiology Interpretation Free Text/Narrative:: Head CT: No acute intracranial abnormalities. ([facility]) Departure - Departure Time of Disposition: 17:27 Disposition: Home, Self-Care 01 Condition: Good Clinical Impression: Transient alteration of awareness UTI (urinary tract infection) Qualifiers: Urinary tract infection type: site unspecified Hematuria presence: with hematuria Qualified Code(s): N39.0 - Urinary tract infection, site not specified ; R31.9 - Hematuria, unspecified - Discharge Information *PRESCRIPTION DRUG MONITORING PROGRAM REVIEWED*: No *COPY OF PRESCRIPTION DRUG MONITORING REPORT IN PATIENT REMIGIO: Not Applicable Prescriptions: Cefuroxime [Ceftin] 250 mg PO BID #20 tab Instructions: Urinary Tract Infection, Adult, Confusion Referrals: Nawaf Parker PA-C [Ordering Only Provider] - 2 Days Forms: ED Department Discharge Additional Instructions: Fill the prescription for Ceftin at [facility] and take as directed. Follow up with your primary physician in 2-3 days. Return to the ER if symptoms recur or worsen. - My Orders Last 24 Hours: My Active Orders 03/28/19 15:34 EKG 12 Lead [EK] Stat 03/28/19 15:35 EKG Documentation Completion [RC] ASDIRECTED Blood Culture x2 Reflex Set [OM.PC] Urgent 03/28/19 15:38 Head wo Cont [CT] Stat 03/28/19 16:05 CBC WITH AUTO DIFF [HEME] Stat CULTURE BLOOD [BC] Urgent 03/28/19 16:15 CULTURE BLOOD [BC] Urgent 03/28/19 17:16 CULTURE URINE [RM] Stat - Assessment/Plan Last 24 Hours: My Active Orders 03/28/19 15:34 EKG 12 Lead [EK] Stat 03/28/19 15:35 EKG Documentation Completion [RC] ASDIRECTED Blood Culture x2 Reflex Set [OM.PC] Urgent 03/28/19 15:38 Head wo Cont [CT] Stat 03/28/19 16:05 CBC WITH AUTO DIFF [HEME] Stat CULTURE BLOOD [BC] Urgent 03/28/19 16:15 CULTURE BLOOD [BC] Urgent 03/28/19 17:16 CULTURE URINE [RM] Stat
[2019-03-28] MEDS ORDERED: Cefuroxime 250 MG Tab PO ONE (17:21)
[2019-03-28] MEDS ORDERED: Cefuroxime 250 MG Tab ONE (17:58)
[2019-03-28 18:00] VITALS: BP 129/83; PULSE 69
== END 2019-03-28 18:35 | disposition home or self-care (01) ==
LOC: FB.ED 15:21
DX: R40.4 Transient alteration of awareness (principal); N39.0 Urinary tract infection, site not specified; R31.9 Hematuria, unspecified; F03.90 Unspecified dementia, unspecified severity, without behavioral disturbance, psychotic disturbance, mood disturbance, and anxiety; I10 Essential (primary) hypertension; J44.9 Chronic obstructive pulmonary disease, unspecified; Z88.5 Allergy status to narcotic agent; Z86.711 Personal history of pulmonary embolism; Z79.01 Long term (current) use of anticoagulants; Z79.899 Other long term (current) drug therapy
CPT/HCPCS: 36415; 70450; 80053; 81001; 82962; 83605; 84484; 85025; 85610; 85730; 87040; 87086; 93005; 99284; A9270; 93010; 99283

== ENCOUNTER 2020-03-04 10:54 | Emergency (ER) | payer MEDICARE, OTHER ==
--- NOTE | 2020-03-04 11:25 | EDM.PDOC ---
ED HPI GENERAL MEDICAL PROBLEM - General Chief Complaint: General Stated Complaint: SIEZURE Time Seen by Provider: 03/04/20 11:05 Source of Information: Reports: Patient, [facility] Records, RN Notes Reviewed History Limitations: Reports: Other (Dementia) - History of Present Illness INITIAL COMMENTS - FREE TEXT/NARRATIVE: sent in via ambulance from assisted living Notes states pt was having shaking uncontrollably and thought it was a seizure Unsure whether there as loss of consciousness, there as no incontinence Pt has a history of pseudoseizures Onset: Today Onset Date: 03/04/20 Duration: Resolved Prior to Arrival Location: Reports: Generalized Quality: Reports: Same as Previous Episode, Other Severity: Mild Improves with: Reports: None Worsens with: Reports: None Context: Reports: Other Associated Symptoms: Reports: Confusion, Weakness, Other (seizure -like activity) - Related Data Allergies Allergy/AdvReac Type Severity Reaction Status Date / Time codeine Allergy Other Verified 03/04/20 11:01 propoxyphene Allergy Other Verified 03/04/20 11:01 Home Meds: Home Meds amLODIPine [Norvasc] 10 mg PO DAILY #30 tablet 12/14/14 [Rx] Donepezil HCl [Aricept] 10 mg PO BEDTIME 11/16/17 [History] Furosemide [Lasix] 20 mg PO DAILY 11/16/17 [History] Memantine HCl 10 mg PO BID 11/16/17 [History] Multivitamin [Multi-Day Vitamins] 1 tab PO DAILY 11/16/17 [History] Lisinopril 20 mg PO DAILY 10/05/18 [History] Apixaban [Eliquis] 2.5 mg PO BID 03/04/20 [History] Cefuroxime [Ceftin] 250 mg PO BID #30 tab 03/04/20 [Rx] Past Medical History HEENT History: Reports: None Cardiovascular History: Reports: Hypertension Respiratory History: Reports: PE Other Respiratory History: COPD DIAGNOSIS ON OLD CHEST X-RAY 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: Neurological History: Reports: Migraines, Other (See Below) (pseudoseizure) Other Neuro History: MENINGITIS, FORGETFUL Psychiatric History: Reports: Dementia Hematologic History: Reports: Anticoagulation Therapy - Infectious Disease History Infectious Disease History: Reports: Chicken Pox, Measles, Meningitis, Mumps, Pertussis (Whooping Cough), Scarlet Fever - Past Surgical History Female Surgical History: Reports: Hysterectomy Musculoskeletal Surgical History: Reports: ORIF (Wrist and ankle) Social & Family History - Family History Family Medical History: Noncontributory - Caffeine Use Caffeine Use: Reports: Coffee Other Caffeine Use: gatorade sometimes - Living Situation & Occupation Living situation: Reports: Assisted Living ED ROS GENERAL - Review of Systems Review Of Systems: See Below Constitutional: Reports: No Symptoms, Fever, Chills, Malaise. Denies: Weakness HEENT: Reports: No Symptoms Respiratory: Reports: No Symptoms Cardiovascular: Reports: No Symptoms Endocrine: Reports: No Symptoms GI/Abdominal: Reports: No Symptoms : Reports: No Symptoms, Hematuria Musculoskeletal: Reports: No Symptoms Skin: Reports: No Symptoms Neurological: Reports: Confusion, Other (memory deficit) Psychiatric: Reports: No Symptoms Hematologic/Lymphatic: Reports: No Symptoms Immunologic: Reports: No Symptoms ED EXAM, NEURO - Physical Exam Exam: See Below Exam Limited By: No Limitations General Appearance: Alert, WD/WN, No Apparent Distress Eye Exam: Bilateral Eye: EOMI Ears: Normal External Exam Nose: Normal Inspection Throat/Mouth: Normal Inspection Head Exam: Atraumatic, Normocephalic Respiratory/Chest: No Respiratory Distress, Lungs Clear Cardiovascular: Normal Peripheral Pulses, Regular Rate, Rhythm GI/Abdominal: Normal Bowel Sounds, Soft, Non-Tender Neurological: Alert, Normal Mood/Affect, Normal Dorsiflexion, Normal Gait, No Motor/Sensory Deficits, Oriented x 3 Back Exam: Decreased Range of Motion Psychiatric: Normal Affect, Normal Mood Skin Exam: Warm, Dry *Q Meaningful Use (ADM) - VTE *Q VTE Mechanical Contraindications *Q: At Risk for Falls VTE Pharmacological Contraindications *Q: Risk of Bleeding - VTE Risk Assess *Q Each Risk Factor Represents 1 Point: None Total Score 1 Point Risk Factors: 0 - Stroke *Q Aspirin Contraindications Stroke *Q: Other (Use Special Inst) Anticoagulation Contraindications Stroke *Q: Med/TX Not Indicated/Need Antithrombotic Contraindications Stroke *Q: Med/TX Not Indicated/Need Thrombolytic/Fibrinolytic Contraindications Stroke *Q: Med/TX Not Indicated/Need Statin Contraindications Stroke *Q: Med/TX Not Indicated/Need Rehabilitation Assessment Contraindication *Q: Med/tx not indicated/need - AMI *Q Aspirin Contraindications AMI *Q: Med/TX Not Indicated/Need Thrombolytic/Fibrinolytic Contraindications IV (AMI) *Q: Med/tx not indicated/need Statin Contraindications AMI *Q: Med/TX Not Indicated/Need Course - Vital Signs Last Recorded V/S: Last Vital Signs Temp 36.6 C 03/04/20 10:54 Pulse 81 03/04/20 16:10 Resp 16 03/04/20 16:10 BP 114/62 03/04/20 16:10 Pulse Ox 98 03/04/20 16:10 - Orders/Labs/Meds Labs: Laboratory Tests 03/04/20 03/04/20 03/04/20 Range/Units 11:30 11:30 11:30 WBC 5.6 (4.5-12.0) X10-3/uL RBC 4.44 (3.23-5.20) x10(6)uL Hgb 13.7 (11.5-15.5) g/dL Hct 40.5 (30.0-51.3) % MCV 91.3 (80-96) fL MCH 30.9 (27.7-33.6) pg MCHC 33.8 (32.2-35.4) g/dL RDW 12.5 (11.5-15.5) % Plt Count 237 (125-369) X10(3)uL PT 10.3 (9.0-11.1) sec INR 0.95 L (1.00-1.24) Sodium 142 (135-145) mmol/L Potassium 4.0 (3.5-5.3) mmol/L Chloride 107 (100-110) mmol/L Carbon Dioxide 26 (21-32) mmol/L BUN 14 (7-18) mg/dL Creatinine 1.0 (0.55-1.02) mg/dL Est Cr Clr Drug Dosing 34.02 mL/min Estimated GFR (MDRD) 53 L (>60) BUN/Creatinine Ratio 14.0 (9-20) Glucose 85 (80-116) mg/dL Calcium 9.0 (8.6-10.2) mg/dL Magnesium (1.8-2.5) mg/dL NT-Pro-B Natriuret Pep (<=450) pg/mL TSH, Ultra Sensitive (0.36-3.74) IU/mL Urine Color (YELLOW) Urine Appearance (CLEAR) Urine pH (5.0-6.5) Ur Specific [place] (1.010-1.025) Urine Protein (NEGATIVE) mg/dL Urine Glucose (UA) (NORMAL) mg/dL Urine Ketones (NEGATIVE) mg/dL Urine Occult Blood (NEGATIVE) Urine Nitrite (NEGATIVE) Urine Bilirubin (NEGATIVE) Urine Urobilinogen (NEGATIVE) mg/dL Ur Leukocyte Esterase (NEGATIVE) Urine RBC (0-5) Urine WBC (0-5) Ur Squamous Epith Cells (NS,R,O) Urine Bacteria (NS) 03/04/20 03/04/20 03/04/20 Range/Units 11:30 11:30 11:30 WBC (4.5-12.0) X10-3/uL RBC (3.23-5.20) x10(6)uL Hgb (11.5-15.5) g/dL Hct (30.0-51.3) % MCV (80-96) fL MCH (27.7-33.6) pg MCHC (32.2-35.4) g/dL RDW (11.5-15.5) % Plt Count (125-369) X10(3)uL PT (9.0-11.1) sec INR (1.00-1.24) Sodium (135-145) mmol/L Potassium (3.5-5.3) mmol/L Chloride (100-110) mmol/L Carbon Dioxide (21-32) mmol/L BUN (7-18) mg/dL Creatinine (0.55-1.02) mg/dL Est Cr Clr Drug Dosing mL/min Estimated GFR (MDRD) (>60) BUN/Creatinine Ratio (9-20) Glucose (80-116) mg/dL Calcium (8.6-10.2) mg/dL Magnesium 2.0 (1.8-2.5) mg/dL NT-Pro-B Natriuret Pep 300 (<=450) pg/mL TSH, Ultra Sensitive 0.79 (0.36-3.74) IU/mL Urine Color (YELLOW) Urine Appearance (CLEAR) Urine pH (5.0-6.5) Ur Specific [place] (1.010-1.025) Urine Protein (NEGATIVE) mg/dL Urine Glucose (UA) (NORMAL) mg/dL Urine Ketones (NEGATIVE) mg/dL Urine Occult Blood (NEGATIVE) Urine Nitrite (NEGATIVE) Urine Bilirubin (NEGATIVE) Urine Urobilinogen (NEGATIVE) mg/dL Ur Leukocyte Esterase (NEGATIVE) Urine RBC (0-5) Urine WBC (0-5) Ur Squamous Epith Cells (NS,R,O) Urine Bacteria (NS) 03/04/20 Range/Units 12:18 WBC (4.5-12.0) X10-3/uL RBC (3.23-5.20) x10(6)uL Hgb (11.5-15.5) g/dL Hct (30.0-51.3) % MCV (80-96) fL MCH (27.7-33.6) pg MCHC (32.2-35.4) g/dL RDW (11.5-15.5) % Plt Count (125-369) X10(3)uL PT (9.0-11.1) sec INR (1.00-1.24) Sodium (135-145) mmol/L Potassium (3.5-5.3) mmol/L Chloride (100-110) mmol/L Carbon Dioxide (21-32) mmol/L BUN (7-18) mg/dL Creatinine (0.55-1.02) mg/dL Est Cr Clr Drug Dosing mL/min Estimated GFR (MDRD) (>60) BUN/Creatinine Ratio (9-20) Glucose (80-116) mg/dL Calcium (8.6-10.2) mg/dL Magnesium (1.8-2.5) mg/dL NT-Pro-B Natriuret Pep (<=450) pg/mL TSH, Ultra Sensitive (0.36-3.74) IU/mL Urine Color Yellow (YELLOW) Urine Appearance Cloudy (CLEAR) Urine pH 8.0 H (5.0-6.5) Ur Specific [place] 1.015 (1.010-1.025) Urine Protein Negative (NEGATIVE) mg/dL Urine Glucose (UA) Normal (NORMAL) mg/dL Urine Ketones Negative (NEGATIVE) mg/dL Urine Occult Blood Negative (NEGATIVE) Urine Nitrite Positive H (NEGATIVE) Urine Bilirubin Negative (NEGATIVE) Urine Urobilinogen Normal (NEGATIVE) mg/dL Ur Leukocyte Esterase Large H (NEGATIVE) Urine RBC 0-5 (0-5) Urine WBC >100 H (0-5) Ur Squamous Epith Cells Few H (NS,R,O) Urine Bacteria Many H (NS) Meds: Medications Discontinued Medications Generic Name Dose Route Start Last Admin Trade Name Lucie PRN Reason Stop Dose Admin Ceftriaxone Sodium 1 gm 03/04/20 13:52 03/04/20 14:54 Rocephin IM 03/04/20 13:53 1 gm ONETIME ONE Administration - Re-Assessments/Exams Free Text/Narrative Re-Assessment/Exam: 03/04/20 12:18 Attempted to call daughter there was no reply 03/04/20 13:51 pt has been stable , no concerns Lbs : noted to have UTI will treat same Departure - Departure Time of Disposition: 16:15 Disposition: Home, Self-Care 01 Condition: Fair Clinical Impression: UTI (urinary tract infection), uncomplicated, Fatigue, UTI, Urinary tract infectious disease - Discharge Information *PRESCRIPTION DRUG MONITORING PROGRAM REVIEWED*: Not Applicable *COPY OF PRESCRIPTION DRUG MONITORING REPORT IN PATIENT REMIGIO: Not Applicable Prescriptions: Cefuroxime [Ceftin] 250 mg PO BID #30 tab Instructions: Urinary Tract Infection, Adult, [id number] Referrals: PCP,None [Primary Care Provider] - Forms: ED Department Discharge Additional Instructions: 1) increase fluid intake 2) Increase intake cranberry pills / juice to prevent repeat UTI 3) Follow up with PCP as needed
[2020-03-04] MEDS ORDERED: cefTRIAXone 1 GM Vial IM ONE (13:52)
--- NOTE | 2020-03-04 15:09 | CT ---
INDICATION: Possible seizures. CT HEAD WITHOUT CONTRAST: Spiral 3.75 mm axial sections were obtained through the brain without contrast with sagittal, coronal and axial reconstructions 03/04/20 and compared with 03/28/19. Total exam DLP was 1348.07 mGy-cm. Mild to moderate degenerative changes are noted at the odontoatlantian joint. There are a few fluid-filled appearing inferior mastoid air cells on the left, which could represent a minimal degree of mastoiditis and should be correlated clinically. There is unusual-appearing retention cyst at the base of the left maxillary antrum with thickening of the wall of the left maxillary antrum of mild degree. The paranasal sinuses are otherwise well aerated. A simple-appearing cystic structure is noted at the right occipital bone, unchanged from the previous study. No significant-appearing cranial abnormality was identified except for suggestion of demineralization. 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 No shift of midline structures was identified. Ventricles appear normal for age. There is again noted calcification in the left vertebral and both internal carotid arteries. The orbits appear to be intact. No definite abnormal areas of density are identified, except for some minimal periventricular white matter changes, suggesting minimal microvascular disease, mostly at the frontal, but also at the right parietal lobes. No bleeding site or hematoma was identified - no finding to strongly suggest an acute thrombotic CVA was seen. IMPRESSION: 1. No definite acute intracranial abnormality. 2. Mild central atrophy, compatible with the patient's age. 3. Cerebrovascular disease with arterial calcifications and minimal microvascular disease-type changes in the frontal lobe areas. 4. Question very minimal inferior left mastoiditis with minimal changes, compatible with previous sinusitis suggested at the left maxillary antrum. MTDD
[2020-03-04 20:08] VITALS: BP 114/62; PULSE 81
== END 2020-03-04 16:17 | disposition home or self-care (01) ==
LOC: FB.ED 10:54
DX: N39.0 Urinary tract infection, site not specified (principal); R53.83 Other fatigue; F03.90 Unspecified dementia, unspecified severity, without behavioral disturbance, psychotic disturbance, mood disturbance, and anxiety; I10 Essential (primary) hypertension; Z88.5 Allergy status to narcotic agent; Z88.8 Allergy status to other drugs, medicaments and biological substances; Z79.01 Long term (current) use of anticoagulants; Z79.899 Other long term (current) drug therapy; Z86.718 Personal history of other venous thrombosis and embolism
CPT/HCPCS: 36415; 70450; 80048; 81001; 83735; 83880; 84443; 85027; 85610; 96372; 99285-25; J0696